=== PATIENT | female | born 1990 | race Caucasian/White ===

== ENCOUNTER 2016-07-25 18:03 | Emergency (ER) | payer OTHER, MEDICAID ==
[~2016-07-25] VITALS: Ht 162.6 cm; Wt 97.9 kg
[2016-07-25] MEDS ORDERED: SODIUM CHLORIDE 0.9% 1,000 ML IV ONE (18:33)
[2016-07-25] MEDS ORDERED: ALBUTEROL/IPRATROPIUM 2.5MG/0.5MG, 3 ML NPPB ONE (19:00)
[2016-07-25] MEDS ORDERED: SODIUM CHLORIDE FLUSH 10ML SYR IVF ONE (19:00)
[2016-07-25] MEDS ORDERED: KETOROLAC 30 MG/1 ML IVPush ONE (19:00)
[2016-07-25 19:01] LABS: ASPARTATE AMINO TRANSFERASE 17 U/L (15-37); BLOOD UREA NITROGEN 16 mg/dL (7-18)
[2016-07-25] MEDS ORDERED: KETOROLAC 30 MG/1 ML ONE (19:13)
[2016-07-25] MEDS ORDERED: ALBUTEROL/IPRATROPIUM 2.5MG/0.5MG, 3 ML ONE (19:16)
[2016-07-25] MEDS ORDERED: LEVE100020 PO (21:17)
[2016-07-25] MEDS ORDERED: DULO60CA7 PO (21:17)
[2016-07-25] MEDS ORDERED: CLON-364 PO (21:17)
[2016-07-25 22:38] VITALS: BP 134/98
== END 2016-07-25 22:42 | disposition home or self-care (01) ==
LOC: ED 21:08
DX: J45.40 Moderate persistent asthma, uncomplicated (principal); R10.9 Unspecified abdominal pain; F12.10 Cannabis abuse, uncomplicated
CPT/HCPCS: 36415; 71020; 74176; 80053; 81001; 84703; 85025; 87086; 94640; 96361; 96374; 99285; J1885; J7030; J7620

== ENCOUNTER 2017-05-03 13:26 | Emergency (ER) | payer MEDICAID, OTHER ==
[~2017-05-03] VITALS: Ht 162.6 cm; Wt 94.6 kg
[~2017-05-03 13:26] MED LIST: CLON-364 PO; DULO60CA7 PO; LEVE100020 PO
[2017-05-03 15:02] LABS: BASOPHILS # (AUTO) 0.06 x10^3/uL (0-0.1); BASOPHILS % (AUTO) 1 % (0-1); EOSINOPHILS # (AUTO) 0.34 x10^3/uL (0-0.4); EOSINOPHILS % (AUTO) 5 % (1-7); LYMPHOCYTES # (AUTO) 3.13 x10^3/uL (1-3.4); LYMPHOCYTES % (AUTO) 44 % (22-44); MD NO; MEAN CORPUSCULAR HEMOGLOBIN 31.6 pg (27.0-34.8); MEAN CORPUSCULAR HGB CONC 34.3 g/dL (32.4-35.8); MEAN CORPUSCULAR VOLUME 92.3 fL (80-100); MEAN PLATELET VOLUME 7.6 fL (7.4-10.4); MONOCYTES # (AUTO) 0.51 x10^3/uL (0.2-0.8); MONOCYTES % (AUTO) 7 % (2-9); NEUTROPHILS # (AUTO) 3.01 x10^3/uL (1.8-6.8); NEUTROPHILS % (AUTO) 43 % (42-75); PLATELET COUNT 319 x10^3/uL (130-400); RED BLOOD COUNT 4.92 x10^6/uL (3.82-5.3); RED CELL DISTRIBUTION WIDTH 12.6 % (9.6-15.2)
[2017-05-03 15:11] LABS: ALBUMIN 3.7 g/dL (3.4-5.0); ANION GAP 7 mmol/L (5-15); CALCIUM 8.6 mg/dL (8.5-10.1); CHLORIDE 106 mmol/L (98-107); CREATININE 0.72 mg/dL (0.55-1.02)
[2017-05-03 15:15] LABS: TROPONIN I < 0.015 ng/mL (0.000-0.045)
[2017-05-03 15:22] LABS: MICROSCOPIC INDICATED
[2017-05-03 15:23] LABS: CULTURE INDICATED? YES
[2017-05-03 15:45] VITALS: BP 114/72
[2017-05-03] MEDS ORDERED: HYDROmorphone 2 MG/ML, 1ML ONE (15:46)
[2017-05-03 15:52] LABS: THYROID STIMULATING HORMONE 0.568 mIU/L (0.358-3.740)
== END 2017-05-03 16:15 | disposition home or self-care (01) ==
LOC: ED 16:09
DX: R07.89 Other chest pain (principal); I49.3 Ventricular premature depolarization; J45.909 Unspecified asthma, uncomplicated; M06.9 Rheumatoid arthritis, unspecified
CPT/HCPCS: 36415; 71046; 80048; 81001; 82040; 83735; 84443; 84484; 84703; 85025; 87086; 93005; 99285